=== PATIENT | female | born 1990 | race Caucasian/White ===

== ENCOUNTER 2017-03-19 08:05 | Emergency (ER) | payer MEDICAID ==
[~2017-03-19] VITALS: Ht 160 cm; Wt 90.0 kg
[2017-03-19 08:23] VITALS: BP 102/37
== END 2017-03-19 09:50 | disposition home or self-care (01) ==
LOC: ED 09:35
DX: R56.9 Unspecified convulsions (principal); E11.649 Type 2 diabetes mellitus with hypoglycemia without coma; Z79.4 Long term (current) use of insulin
CPT/HCPCS: 36415; 80047; 99283